=== PATIENT | female | born 1995 | race Caucasian/White ===

== ENCOUNTER 2018-06-28 20:56 | Emergency (ER) | payer MEDICAID ==
[~2018-06-28] VITALS: Ht 170.2 cm; Wt 144.2 kg
[2018-06-28 21:02] VITALS: BP 122/82
== END 2018-06-28 22:22 | disposition home or self-care (01) ==
LOC: ED 22:10
DX: S83.92XA Sprain of unspecified site of left knee, initial encounter (principal); K21.9 Gastro-esophageal reflux disease without esophagitis; X50.1XXA Overexertion from prolonged static or awkward postures, initial encounter; Y93.89 Activity, other specified; Y99.8 Other external cause status; Y92.69 Other specified industrial and construction area as the place of occurrence of the external cause
CPT/HCPCS: 29530; 99284

== ENCOUNTER 2018-10-23 00:54 | Emergency (ER) | payer SELFPAY ==
[~2018-10-23] VITALS: Ht 170.2 cm; Wt 147.0 kg
[2018-10-23] MEDS ORDERED: ACETAMINOPHEN 500 MG TABLET ONE (01:21)
--- NOTE | 2018-10-23 01:29 | NUR ---
PT HERE FOR COUGH AND FEVER. HR SLIGHTLY ELEVATED. VSS. PT MEDICATED. CALL LIGHT IN REACH
[2018-10-23] MEDS ORDERED: ACETAMINOPHEN 500 MG TABLET PO ONE (01:30)
[2018-10-23 02:07] LABS: RAPID INFLUENZA A POSITIVE (Negative); RAPID INFLUENZA B Negative (Negative)
[2018-10-23 02:12] VITALS: BP 139/87
--- NOTE | 2018-10-23 02:35 | NUR ---
Patient given discharge instructions and they have confirmed that they understand the instructions. Patient ambulatory with steady gait.
== END 2018-10-23 02:37 | disposition home or self-care (01) ==
LOC: ED 01:19
DX: J10.1 Influenza due to other identified influenza virus with other respiratory manifestations (principal); R50.9 Fever, unspecified; K21.9 Gastro-esophageal reflux disease without esophagitis
CPT/HCPCS: 71045; 87400; 99284